=== PATIENT | female | born 1995 | race African-American/Black ===

== ENCOUNTER 2020-08-07 08:56 | Emergency (ER) | payer OTHER ==
[2020-08-07 09:10] VITALS: BP 127/72
--- NOTE | 2020-08-07 09:14 | ED Physician Documentation ---
PD HPI CHEST PAIN - Stated complaint Stated Complaint: RIB PX - Chief complaint Chief Complaint: General - History obtained from History obtained from: Patient - History of Present Illness Timing - onset: How many days ago (3) Timing - onset during: Exertion (she noted onset of left lateral chestwall pain while working out in gym 3 days ago. Continues to hurt with movement and lifting, as well as deep breathing. Had though it would be better over few days. Seems worsening. Had not worked out the past 2 days.) Timing - duration: Days (3) Timing - details: Abrupt onset, Still present, Waxing and waning Quality: Aching, Sharp, Pain Location: Left chest (lower costal margin and lateral lower ribs. No abd pain.) Radiation: Back (some today toward the left back.). No: Neck Improved by: Rest Worsened by: Inspiration, Movement, Palpation Associated symptoms: No: Shortness of air, Nausea, Vomiting, Feeling faint / dizzy, Cough Similar symptoms before: Has not had sx before Recently seen: Not recently seen Review of Systems Constitutional: denies: Fever, Chills Nose: denies: Rhinorrhea / runny nose, Congestion Throat: denies: Sore throat Cardiac: reports: Chest pain / pressure. denies: Palpitations, Pedal edema, Calf pain Respiratory: denies: Dyspnea, Cough, Wheezing GI: denies: Abdominal Pain, Nausea, Vomiting Skin: denies: Rash, Lesions Musculoskeletal: denies: Extremity swelling Neurologic: denies: Focal weakness, Numbness, Near syncope PD PAST MEDICAL HISTORY - Past Medical History Cardiovascular: None Respiratory: None Neuro: None Endocrine/Autoimmune: None - Present Medications Home Medications: Ambulatory Orders Medication Instructions Recorded Confirmed HYDROcod/ACETAM 5/325 [Truro 5/325] 1 ea PO Q6H PRN #15 tablet 08/07/20 Ibuprofen [Motrin] 600 mg PO TID PRN #25 tab 08/07/20 tiZANidine [Zanaflex] 4 mg PO Q8H PRN #25 tablet 08/07/20 - Allergies Allergies/Adverse Reactions: Allergies Allergy/AdvReac Type Severity Reaction Status Date / Time No Known Drug Allergies Allergy Verified 08/07/20 09:10 - Living Situation Living Arrangement: reports: At home - Social History Does the pt smoke?: No Does the pt have substance abuse?: No PD ED PE NORMAL - Vitals Vital signs reviewed: Yes - General General: Alert and oriented X 3, Well developed/nourished, Other (appears in pain with trunk movement) - Neck Neck: Supple, no meningeal sign, No adenopathy - Cardiac Cardiac: RRR, No murmur - Respiratory Respiratory: No respiratory distress, Clear bilaterally, Other (tender lower ribs laterally and costal margin anterolaterally. No rash. No skin sensitivity per se. Tender to palpate. Not tender in upper abdomen. ) - Abdomen Abdomen: Normal bowel sounds, Soft, Non tender, Non distended - Female Female : Deferred - Rectal Rectal: Deferred - Back Back: No CVA TTP - Derm Derm: Normal color, Warm and dry - Neuro Neuro: Alert and oriented X 3, No motor deficit, Normal speech Results - Vitals Vitals: Vital Signs - 24 hr 08/07/20 09:05 Temperature 36.7 C Heart Rate 66 Respiratory 15 Rate Blood Pressure 127/72 O2 Saturation 99 Oxygen O2 Source Room air - Rads (name of study) chest with ribs Radiology: Prelim report reviewed (no acute evidence of osseous nor cardiopulmonary abnormalities. ), See rad report PD MEDICAL DECISION MAKING - ED course Complexity details: reviewed results, re-evaluated patient, considered differential (presume muscle strain. Can get xrays to view for stress fractures ribs or more importantly lung issues such as effusion/PTX. ), d/w patient Departure - Departure Disposition: 01 Home, Self Care Clinical Impression: Strain of chest wall Qualifiers: Encounter type: initial encounter Qualified Code(s): S29.011A - Strain of muscle and tendon of front wall of thorax, initial encounter Condition: Stable Record reviewed to determine appropriate education?: Yes Instructions: ED Chest Pain Costochondritis Follow-Up: [facility] [Provider Group] Prescriptions: Ibuprofen [Motrin] 600 mg PO TID PRN #25 tab PRN Reason: Pain HYDROcod/ACETAM 5/325 [Truro 5/325] 1 ea PO Q6H PRN #15 tablet PRN Reason: Pain tiZANidine [Zanaflex] 4 mg PO Q8H PRN #25 tablet PRN Reason: Spasms Comments: Your x-ray appears normal without any signs of lung or rib injury. Clinically this seems like a strain of the chest wall muscles or some inflammation of the costochondral cartilage. I would anticipate improvement with anti-inflammatories such as ibuprofen 3 times a day. To that add tizanidine muscle relaxant for spasms and stiffness. To that add Tylenol 650mg every 4-6 hours or hydrocodone if needed for worse pain. Light to minimal activity for the next 3 days. Then perhaps another week of no heavy lifting, push pull or working out until fully improved. Recheck if not improved over the next 3 days. Forms: Activity restrictions Discharge Date/Time: 08/07/20 11:54
[2020-08-07] MEDS ORDERED: methocarbamoL 500 MG TABLET PO STA (09:49)
[2020-08-07] MEDS ORDERED: HYDROcod/ACETAM 5/325 MG TABLET PO STA (09:49)
[2020-08-07] MEDS ORDERED: KETOROLAC 30 MG/ML VIAL IM STA (09:49)
--- NOTE | 2020-08-07 10:24 | XRAY Report ---
PROCEDURE: Ribs w/PA Chest LT INDICATIONS: left ribs pain with working out 3 days ago TECHNIQUE: 2 views of the left ribs were acquired, along with a single view chest. COMPARISON: None FINDINGS: Surgical changes and devices: None. Bones and chest wall: No fractures or dislocations. No suspicious bony lesions. Overlying soft tis sues appear unremarkable. Lungs and pleura: No pleural effusions or pneumothorax. Lungs appear clear. Mediastinum: Mediastinal contours appear normal. Heart size is normal. IMPRESSION: No evidence of an acute cardiopulmonary or osseous abnormality. Reviewed by: Regis Louise DO on 08/07/2020 9:22 AM [facility] Approved by: Regis Louise DO on 08/07/2020 9:22 AM [facility] Station ID: [id number]
== END 2020-08-07 11:54 | disposition home or self-care (01) ==
LOC: ED 08:56
DX: S29.011A Strain of muscle and tendon of front wall of thorax, initial encounter (principal); X58.XXXA Exposure to other specified factors, initial encounter; Y93.A9 Activity, other involving cardiorespiratory exercise; Y92.39 Other specified sports and athletic area as the place of occurrence of the external cause
CPT/HCPCS: 71101; 96372; 99283; 99284; A9270